=== PATIENT | female | born 1975 | race African-American/Black ===

== ENCOUNTER 2023-10-31 13:02 | Inpatient (IN) | payer OTHER ==
[~2023-10-31 13:02] MED LIST: Iopamidol 370 76% 100 ML VIAL ONE
[2023-10-31 14:03] LABS: #Eosinphils 0.1 10x3/uL (0.0-0.5); #Monocytes 0.8 10x3/uL (0.0-1.1); #Neutrophils 7.3 10x3/uL (1.5-8.4); %Basophils 0.2 % (0.0-2.0); %Eosinophils 0.6 % (0.0-6.0); %Lymphocytes 11.9 % (18.0-47.0); %Monocytes 8.3 % (0.0-10.0); %Neutrophils 78.7 % (40.0-75.0); Hematocrit 43.5 % (34.9-44.5); Mean Corpuscular HGB CONC 34.5 g/dL (32.0-36.0); Mean Corpuscular Hemoglobin 34.6 pg (27.0-33.0); Mean Corpuscular Volume 100.2 fl (81.6-98.3); Mean Platelet Volume 10.1 fl (7.4-10.4); Platelet Count 175 10x3/uL (150-450); RBC Distribution Width 14.4 % (11.5-14.5); Red Blood Cell (RBC) Count 4.34 10x6/uL (3.90-5.03); White Blood Cell (WBC) Count 9.2 10x3/uL (3.5-10.5)
[2023-10-31 14:20] LABS: ALT (SGPT) 11 U/L (8-55); AST (SGOT) 26 U/L (5-34); Albumin 3.5 g/dL (3.5-5.0); Alkaline Phosphatase 135 U/L (40-110); Anion Gap 14 mmol/L (10-20); BUN (Urea Nitrogen) 26 mg/dL (7.0-18.7); Bilirubin, Total 0.6 mg/dL (0.2-1.2); Calc. Creatinine Clearance 0 mL/min (70-130); Calcium 8.7 mg/dL (7.8-10.44); Carbon Dioxide 24 mmol/L (22-29); Chloride 103 mmol/L (98-107); Estimated GFR 43; Globulin 3.1 g/dL (2.4-3.5); Glucose 92 mg/dL (70-105); Potassium 3.9 mmol/L (3.5-5.1); Protein, Total 6.6 g/dL (6.0-8.3); Sodium 137 mmol/L (136-145)
[2023-10-31 14:24] LABS: Troponin I 0.075 ng/mL (< 0.028)
[2023-10-31] MEDS ORDERED: Albuterol 2.5 MG (3 mL) NEB ONE ×2 (15:19→18:14)
[2023-10-31] MEDS ORDERED: Ipratropium Bromide 2.5 ml Neb ONE ×2 (15:20→18:15)
[2023-10-31 15:49] LABS: Acetaminophen Less than 10 mcg/mL (10.0-30.0); Alcohol Less than 10.0 mg/dL (Less than 10); Magnesium 1.8 mg/dL (1.6-2.6); Salicylate Less than 8.0 mg/dL (15.0-30.0)
[2023-10-31 16:03] LABS: Amphetamine Not Detected (NotDetected); Barbiturates Screen Not Detected (NotDetected); Benzodiazepine Screen Not Detected (NotDetected); Cocaine Metabolite Screen Detected (NotDetected); Methadone Not Detected (NotDetected); Methamphetamine Not Detected (NotDetected); Opiate Screen Not Detected (NotDetected); Oxycodone Screen Not Detected (NotDetected); Phencyclidine (PCP) Not Detected (NotDetected); THC/Cannabinoid Screen Detected (NotDetected); Tricyclic Screen Not Detected (NotDetected)
[2023-10-31] MEDS ORDERED: Azithromycin 500 MG VIAL ONE (16:40)
[2023-10-31] MEDS ORDERED: cefTRIAXone (ROCEPHIN) 2 GM VIAL ONE (16:40)
[2023-10-31] MEDS ORDERED: Lorazepam 2 MG/ML VIAL ONE (17:36)
[2023-10-31 17:51] LABS: Bilirubin Neg (Negative); Blood, Urine Negative (Negative); Clarity Clear (Clear); Glucose, Urine (Dipstick) 100 mg/dL (Negative); Ketone, Urine Negative (Negative); Leukocyte Negative (Negative); Nitrite Negative (Negative); Protein, Urine (Dipstick) 100 mg/dl (Neg-Trace); Specific Gravity, Urine 1.015 (1.005-1.030); Urobilinogen Normal mg/dL (Less than 2)
[2023-10-31] MEDS ORDERED: Ondansetron ODT 4 MG TAB PO PRN (18:03)
[2023-10-31] MEDS ORDERED: Lorazepam 1 MG TAB PO PRN (18:03)
[2023-10-31] MEDS ORDERED: methylPREDNISolone Sod Succ/PF 125 MG/2 ML VIAL ONE (18:09)
[2023-10-31] MEDS ORDERED: Ipratropium/Albuterol 3 ML NEB NEB PRN (18:11)
[2023-10-31] MEDS ORDERED: Famotidine/PF 20 mg/2ml Vial ONE (18:11)
[2023-10-31] MEDS ORDERED: Thiamine HCl 200 MG/2 ML VIAL SLOW IVP SCH (18:15)
[2023-10-31] MEDS ORDERED: diphenhydrAMINE 50 MG/ML VIAL ONE (18:15)
[2023-10-31] MEDS ORDERED: Electrolyte Replacement Protocol FS SCH (18:15)
[2023-10-31 18:16] LABS: CAUTI Indications for Culture Alt mental st,lethar; RBC/HPF None Seen HPF (0-3); WBC/HPF 0-3 HPF (0-3)
[2023-10-31 18:17] LABS: Bacteria/HPF 3+ HPF (None Seen); Urine Culture Reflex No No
[2023-11-01] MEDS: Famotidine 20 MG TAB PO SCH ×2 (01:21→12:48)
[2023-11-01] MEDS: Magnesium 2 GM/50 ML(in water) 2 GM in Premix 1 BAG IVPB SCH (01:21)
[2023-11-01] MEDS: Lorazepam 1 MG TAB PO SCH (01:22)
[2023-11-01] MEDS: Senokot S 8.6-50 MG TAB PO PRN (01:25)
[2023-11-01 05:48] LABS: Anion Gap 13 mmol/L (10-20); BUN (Urea Nitrogen) 24 mg/dL (7.0-18.7); Calc. Creatinine Clearance 0 mL/min (70-130); Calcium 9.9 mg/dL (7.8-10.44); Carbon Dioxide 25 mmol/L (22-29); Chloride 103 mmol/L (98-107); Estimated GFR 44; Glucose 227 mg/dL (70-105); Potassium 3.8 mmol/L (3.5-5.1); Sodium 137 mmol/L (136-145)
[2023-11-01 08:58] LABS: #Monocytes 0.1 10x3/uL (0.0-1.1); %Basophils 0.1 % (0.0-2.0); %Lymphocytes 5.8 % (18.0-47.0); %Monocytes 1.4 % (0.0-10.0); %Neutrophils 92.5 % (40.0-75.0); Hematocrit 44.9 % (34.9-44.5); Hemoglobin 15.1 g/dL (12.0-15.5); Mean Corpuscular HGB CONC 33.6 g/dL (32.0-36.0); Mean Corpuscular Hemoglobin 33.8 pg (27.0-33.0); Mean Corpuscular Volume 100.4 fl (81.6-98.3); Mean Platelet Volume 10.8 fl (7.4-10.4); Platelet Count 198 10x3/uL (150-450); RBC Distribution Width 14.6 % (11.5-14.5); Red Blood Cell (RBC) Count 4.47 10x6/uL (3.90-5.03); White Blood Cell (WBC) Count 9.7 10x3/uL (3.5-10.5)
[2023-11-01] MEDS ORDERED: Enoxaparin 40 MG (0.4 mL) SYRINGE SC SCH (09:00)
[2023-11-01] MEDS ORDERED: Empagliflozin 10 MG TAB PO SCH (09:00)
[2023-11-01 09:04] LABS: Anion Gap 15 mmol/L (10-20); BUN (Urea Nitrogen) 24 mg/dL (7.0-18.7); Calc. Creatinine Clearance 0 mL/min (70-130); Calcium 9.6 mg/dL (7.8-10.44); Carbon Dioxide 22 mmol/L (22-29); Chloride 102 mmol/L (98-107); Estimated GFR 47; Glucose 221 mg/dL (70-105); Potassium 3.9 mmol/L (3.5-5.1); Sodium 135 mmol/L (136-145)
[2023-11-01 09:12] LABS: Troponin I 0.049 ng/mL (< 0.028)
[2023-11-01] MEDS: Digoxin 0.125 MG TAB PO SCH (12:47)
[2023-11-01] MEDS: Empagliflozin 10 MG TAB PO SCH (12:47)
[2023-11-01] MEDS: Multivit, Therapeutic 1 TAB PO SCH (12:48)
[2023-11-01] MEDS: Folic Acid 1 MG TAB PO SCH (12:48)
[2023-11-01] MEDS: Bumetanide 1 MG TAB PO SCH (12:51)
[2023-11-01] MEDS: predniSONE 50 MG TAB PO SCH (13:17)
[2023-11-01] MEDS: Ipratropium/Albuterol 3 ML NEB NEB SCH (14:45)
[2023-11-01] MEDS: cefTRIAXone\\ROCEPHIN 1 GM in Sodium Chloride 0.9% 100 ML IVPB SCH (17:10)
[2023-11-01] MEDS ORDERED: Lorazepam 1 MG TAB PO PRN (18:04)
[2023-11-01] MEDS: Azithromycin 500 MG in Sodium Chloride 0.9% 250 ML 250 ML IVPB SCH (20:19)
[2023-11-01] MEDS ORDERED: Vancomycin 1.5 GM in Sodium Chloride 0.9% 250 ML 300 ML IVPB SCH (21:00)
[2023-11-01] MEDS: Acetaminophen 325 MG TAB PO PRN (21:34)
[2023-11-01] MEDS: Vancomycin 1.5 GRAM/300 ML BAG 1.5 GM in Premix 1 BAG IVPB SCH (21:45)
[2023-11-02 05:43] LABS: #Monocytes 0.9 10x3/uL (0.0-1.1); %Basophils 0.1 % (0.0-2.0); %Monocytes 4.8 % (0.0-10.0); %Neutrophils 90.7 % (40.0-75.0); Hematocrit 44.7 % (34.9-44.5); Hemoglobin 14.9 g/dL (12.0-15.5); Mean Corpuscular HGB CONC 33.3 g/dL (32.0-36.0); Mean Corpuscular Hemoglobin 33.4 pg (27.0-33.0); Mean Corpuscular Volume 100.2 fl (81.6-98.3); Mean Platelet Volume 10.3 fl (7.4-10.4); Platelet Count 193 10x3/uL (150-450); Red Blood Cell (RBC) Count 4.46 10x6/uL (3.90-5.03); White Blood Cell (WBC) Count 17.7 10x3/uL (3.5-10.5)
[2023-11-02 06:00] LABS: Anion Gap 13 mmol/L (10-20); BUN (Urea Nitrogen) 28 mg/dL (7.0-18.7); Calc. Creatinine Clearance 63 mL/min (70-130); Calcium 9.6 mg/dL (7.8-10.44); Carbon Dioxide 22 mmol/L (22-29); Chloride 105 mmol/L (98-107); Estimated GFR 48; Glucose 110 mg/dL (70-105); Potassium 4.4 mmol/L (3.5-5.1); Sodium 136 mmol/L (136-145)
[2023-11-02] MEDS: Enoxaparin 40 MG (0.4 mL) SYRINGE SC SCH (09:46)
[2023-11-02] MEDS: predniSONE 50 MG TAB PO SCH (10:02)
[2023-11-02] MEDS: Furosemide 100 MG (10 mL) VIAL SLOW IVP SCH ×2 (11:48→16:22)
[2023-11-02 12:02] LABS: Critical Notified By: CP.AOR
[2023-11-02 12:03] LABS: CO2 Tension 36.2 mmHg (35.0-45.0); Critical Notified Time 1120; pH, Arterial 7.423 (7.35-7.45)
[2023-11-02 12:04] LABS: Actual Bicarbonate (HCO3a) 23.1 mEq/L (22-28); Base Excess (BEa) -0.8 mEq/L (-2.0 to +3.0); Hematocrit-ABG 45 % (36.0-47.0); Hemoglobin (Hb) 15.2 g/dL (12.0-16.0); O2 Tension (PaO2), arterial 89.2 mmHg (80.0-100.0)
[2023-11-02 12:05] LABS: Calcium, Ionized (arterial) 1.22 mmol/L (1.12-1.30); Potassium - ABG Lab 3.57 mmol/L (3.70-5.30)
[2023-11-02 12:07] LABS: Analyzer IN Cardio CS ICU; Puncture Site LRA
[2023-11-02] MEDS ORDERED: Vancomycin 1 GM in Sodium Chloride 0.9% 250 ML 250 ML IVPB SCH (14:00)
[2023-11-02] MEDS: COBICISTAT PO SCH (16:16)
[2023-11-02] MEDS: ATAZANAVIR SULFATE PO SCH (16:16)
[2023-11-02] MEDS: Midazolam HCl 2 mg/2 ml Vial SLOW IVP SCH ×2 (16:41→16:51)
[2023-11-03] MEDS ORDERED: Lorazepam 1 MG TAB PO PRN (00:01)
[2023-11-03] MEDS: Lorazepam 0.5 MG TAB PO SCH (00:56)
[2023-11-03 04:56] LABS: #Monocytes 0.8 10x3/uL (0.0-1.1); #Neutrophils 11.3 10x3/uL (1.5-8.4); %Basophils 0.1 % (0.0-2.0); %Monocytes 6.1 % (0.0-10.0); %Neutrophils 82.4 % (40.0-75.0); Hematocrit 45.4 % (34.9-44.5); Hemoglobin 15.5 g/dL (12.0-15.5); Mean Corpuscular HGB CONC 34.1 g/dL (32.0-36.0); Mean Corpuscular Hemoglobin 33.8 pg (27.0-33.0); Mean Corpuscular Volume 99.1 fl (81.6-98.3); Mean Platelet Volume 10.7 fl (7.4-10.4); Platelet Count 188 10x3/uL (150-450); RBC Distribution Width 14.9 % (11.5-14.5); Red Blood Cell (RBC) Count 4.58 10x6/uL (3.90-5.03); White Blood Cell (WBC) Count 13.7 10x3/uL (3.5-10.5)
[2023-11-03 05:01] LABS: Anion Gap 13 mmol/L (10-20); BUN (Urea Nitrogen) 35 mg/dL (7.0-18.7); Calc. Creatinine Clearance 61 mL/min (70-130); Calcium 9.2 mg/dL (7.8-10.44); Carbon Dioxide 24 mmol/L (22-29); Chloride 103 mmol/L (98-107); Estimated GFR 45; Glucose 100 mg/dL (70-105); Potassium 3.9 mmol/L (3.5-5.1); Sodium 136 mmol/L (136-145)
[2023-11-03] MEDS ORDERED: Furosemide 100 MG (10 mL) VIAL SLOW IVP SCH (06:00)
[2023-11-03] MEDS: predniSONE 20 MG TAB PO SCH (11:43)
[2023-11-03] MEDS: Bumetanide 1 MG TAB PO SCH ×2 (11:44→18:53)
[2023-11-03] MEDS: Enoxaparin 80 MG (0.8 mL) SYRINGE SC SCH (11:45)
[2023-11-03] MEDS: Thiamine 100 MG TAB PO SCH (20:49)
[2023-11-03] MEDS: Hydrocortisone Acetate 25 MG Suppository PR PRN (20:50)
[2023-11-03] MEDS: cefTRIAXone\\ROCEPHIN 1 GM in Sodium Chloride 0.9% 100 ML IVPB SCH (21:35)
[2023-11-03] MEDS: Morphine 4 MG/ML VIAL SLOW IVP SCH (22:06)
[2023-11-04] MEDS: Azithromycin 500 MG in Sodium Chloride 0.9% 250 ML 250 ML IVPB SCH (00:07)
[2023-11-04] MEDS: Furosemide 40 MG TAB PO SCH (07:53)
[2023-11-04] MEDS: Lisinopril 5 MG TAB PO SCH (08:39)
[2023-11-04 09:16] LABS: #Neutrophils 8.3 10x3/uL (1.5-8.4); %Basophils 0.2 % (0.0-2.0); %Eosinophils 0.2 % (0.0-6.0); %Lymphocytes 17.3 % (18.0-47.0); %Monocytes 8.8 % (0.0-10.0); %Neutrophils 73.2 % (40.0-75.0); Hematocrit 47.2 % (34.9-44.5); Hemoglobin 16.4 g/dL (12.0-15.5); Mean Corpuscular HGB CONC 34.7 g/dL (32.0-36.0); Mean Corpuscular Hemoglobin 34.1 pg (27.0-33.0); Mean Corpuscular Volume 98.1 fl (81.6-98.3); Mean Platelet Volume 10.6 fl (7.4-10.4); Platelet Count 161 10x3/uL (150-450); RBC Distribution Width 14.6 % (11.5-14.5); Red Blood Cell (RBC) Count 4.81 10x6/uL (3.90-5.03); White Blood Cell (WBC) Count 11.3 10x3/uL (3.5-10.5)
[2023-11-04 11:09] LABS: Anion Gap 13 mmol/L (10-20); BUN (Urea Nitrogen) 40 mg/dL (7.0-18.7); Calc. Creatinine Clearance 58 mL/min (70-130); Calcium 9.3 mg/dL (7.8-10.44); Carbon Dioxide 28 mmol/L (22-29); Chloride 99 mmol/L (98-107); Estimated GFR 43; Glucose 160 mg/dL (70-105); Potassium 3.8 mmol/L (3.5-5.1); Sodium 136 mmol/L (136-145)
[2023-11-04] MEDS: SUMAtriptan Succinate 6 MG/0.5 ML VIAL SC SCH (13:15)
[2023-11-04] MEDS: Acetaminophen 500 MG TAB PO SCH (15:19)
[2023-11-04] MEDS: hydrOXYzine Pamoate 25 mg Capsule PO SCH (20:56)
[2023-11-04] MEDS: Morphine 2 MG/ML VIAL SLOW IVP SCH (20:56)
[2023-11-04 22:40] VITALS: BP 142/82; TEMP 97.5
[2023-11-04] MEDS: Lorazepam 0.5 MG TAB PO PRN (23:05)
[2023-11-05 14:39] LABS: HIV-1 Quantitative, RNA PCR <20 copies/mL (.)
== END 2023-11-04 23:15 | disposition short-term general hospital (02) | DRG 193 ==
LOC: CSHERS 13:02 → CSHERHOLD 17:44 → CSHTELE 22:59 → OBSVTOIN 11-02 12:24
PROVIDERS: ADMIT Internal Medicine; ATTEND Hospitalist
PROC: 4A033R1 Measurement of Arterial Saturation, Peripheral, Percutaneous Approach (ICD-10-PCS; principal; 2023-11-02)
DX: J18.9 Pneumonia, unspecified organism (principal); I26.99 Other pulmonary embolism without acute cor pulmonale; I38 Endocarditis, valve unspecified; I5A Non-ischemic myocardial injury (non-traumatic); J44.1 Chronic obstructive pulmonary disease with (acute) exacerbation; E87.3 Alkalosis; I50.22 Chronic systolic (congestive) heart failure; Z21 Asymptomatic human immunodeficiency virus [HIV] infection status; F19.10 Other psychoactive substance abuse, uncomplicated; J47.9 Bronchiectasis, uncomplicated; I44.30 Unspecified atrioventricular block; Z95.0 Presence of cardiac pacemaker
CPT/HCPCS: 36415; 36416; 36600; 70450; 71045; 71275; 80048; 80053; 80306; 80307; 81001; 82805; 83605; 83735; 83880; 84484; 85025; 87040; 87077; 87086; 87149; 87536; 93005; 93010; 93306; 94640; 94760; 96365; 96372; 96375; G0378; J0456; J0696; J1200; J1650; J1940; J2060; J2250; J2270; J2272; J2930; J3030; J3370; J3475; J3490; J7050; J7512; J7611; J7620; Q0177; Q9967; S0028